=== PATIENT | female | born 1980 | race Two or more races ===

== ENCOUNTER 2016-09-24 09:11 | Emergency (ER) | payer MEDICAID ==
[2016-09-24 11:34] LABS: BASOPHILS 0.1 % (0-2); EOSINOPHILS 0.5 % (0-7); HEMATOCRIT 38.7 % (36.0-48.0); HEMOGLOBIN 13.3 g/dL (12-16); IMMATURE GRANULOCYTES 0.3 % (0-5); LYMPHOCYTES 15.6 % (15-50); MCH 29.3 pg (26.0-34.0); MCHC 34.4 g/dL (31.0-37.0); MCV 85.2 fL (80.0-100.0); MONOCYTES 7.2 % (2-11); NEUTROPHILS 76.3 % (40-80); PLATELET COUNT 217 10x3/uL (130-400); RBC 4.54 10x6/uL (4.00-5.40); RDW 12.1 % (11.5-14.5); WBC 7.5 10x3/uL (4.8-10.8)
[2016-09-24 11:41] LABS: UDS - AMPHET NEGATIVE QUAL (NEGATIVE); UDS - BARB NEGATIVE QUAL (NEGATIVE); UDS - BENZO NEGATIVE QUAL (NEGATIVE); UDS - COCAINE NEGATIVE QUAL (NEGATIVE); UDS - METH NEGATIVE QUAL (NEGATIVE); UDS - OPIATE POSITIVE QUAL (NEGATIVE); UDS - PCP NEGATIVE QUAL (NEGATIVE); UDS - THC NEGATIVE QUAL (NEGATIVE)
[2016-09-24 11:58] LABS: APPEARANCE TURBID (CLEAR); BACTERIA MANY /hpf (NONE SEEN); BILIRUBIN NEGATIVE (NEGATIVE); COLOR YELLOW (YELLOW); EPITHELIAL CELLS 0-5 /hpf (0-5); GLUCOSE 1000 mg/dL (NEGATIVE); KETONE SMALL mg/dL (NEGATIVE); LEUKOCYTE ESTERASE 2+ (NEGATIVE); MUCUS <1+ /lpf (NONE SEEN); NITRITE NEGATIVE (NEGATIVE); PROTEIN 1+ mg/dL (NEGATIVE); UROBILINOGEN NORMAL (NORMAL); WHITE CELLS - URINE >50 /hpf (0-5)
[2016-09-24 12:03] LABS: ALBUMIN 3.4 g/dL (3.4-5.0); ALKALINE PHOSPHATASE 111 U/L (46-116); ALT (SGPT) 25 U/L (10-68); CALC OSMOLALITY 279 mosm/kg (275-300); CALCIUM 8.8 mg/dL (8.5-10.1); CARBON DIOXIDE 29.3 mmol/L (21.0-32.0); CHLORIDE - SERUM 97 mmol/L (98-107); CREATININE - SERUM 0.6 mg/dL (0.6-1.3); MAGNESIUM - SERUM 1.7 mg/dL (1.8-2.4); POTASSIUM - SERUM 4.4 mmol/L (3.5-5.1); PROTEIN - SERUM 7.3 g/dL (6.4-8.2); SODIUM 134 mmol/L (136-145); UREA NITROGEN 9 mg/dL (7-18); eGFR NON AFRICAN AMERICAN > 90 mL/min (90-120)
[2016-09-24 12:04] LABS: GLUCOSE 341 mg/dL (74-106)
== END 2016-09-24 13:30 | disposition home or self-care (01) ==
LOC: D.ER 09:11
PROVIDERS: Emergency Medicine; Nurse Practitioner Family
DX: N39.0 Urinary tract infection, site not specified (principal); M54.5 Low back pain; R30.0 Dysuria; E11.9 Type 2 diabetes mellitus without complications; R10.9 Unspecified abdominal pain; R11.0 Nausea; R35.0 Frequency of micturition

== ENCOUNTER 2017-08-22 15:06 | Emergency (ER) | payer OTHER ==
[~2017-08-22] VITALS: Ht 160 cm; Wt 64.5 kg
[2017-08-22 15:26] VITALS: Ht 160 cm; Wt 64.5 kg
[2017-08-22] MEDS ORDERED: GLUCOPHAGE1000 MG PO (15:27)
[2017-08-22] MEDS ORDERED: GLIPIZIDE10 MG PO (15:28)
[2017-08-22] MEDS ORDERED: LYRICA150 MG PO (15:28)
[2017-08-22 16:31] LABS: BASOPHILS 0.1 % (0-2); HEMATOCRIT 37.6 % (36.0-48.0); IMMATURE GRANULOCYTES 0.4 % (0-5); LYMPHOCYTES 37.8 % (15-50); MCHC 34.6 g/dL (31.0-37.0); MCV 83.9 fL (80.0-100.0); MEAN PLATELET VOLUME 10.9 fL (7.4-10.4); NEUTROPHILS 54.7 % (40-80); PLATELET COUNT 252 10x3/uL (130-400); RBC 4.48 10x6/uL (4.00-5.40); RDW 12.2 % (11.5-14.5); WBC 7.4 10x3/uL (4.8-10.8)
[2017-08-22 16:54] LABS: ALBUMIN 3.3 g/dL (3.4-5.0); ALKALINE PHOSPHATASE 125 U/L (46-116); ALT (SGPT) 25 U/L (10-68); BILIRUBIN - TOTAL 0.36 mg/dL (0.2-1.3); CALC OSMOLALITY 281 mosm/kg (275-300); CALCIUM 9.1 mg/dL (8.5-10.1); CARBON DIOXIDE 29.2 mmol/L (21.0-32.0); CHLORIDE - SERUM 101 mmol/L (98-107); CREATININE - SERUM 0.6 mg/dL (0.6-1.3); POTASSIUM - SERUM 3.9 mmol/L (3.5-5.1); PROTEIN - SERUM 7.3 g/dL (6.4-8.2); SODIUM 137 mmol/L (136-145); UREA NITROGEN 10 mg/dL (7-18); eGFR NON AFRICAN AMERICAN > 90 mL/min (90-120)
[2017-08-22 16:56] LABS: GLUCOSE 253 mg/dL (74-106)
[2017-08-22 17:00] LABS: APPEARANCE CLEAR (CLEAR); BILIRUBIN NEGATIVE (NEGATIVE); COLOR YELLOW (YELLOW); GLUCOSE NEGATIVE (NEGATIVE); KETONE NEGATIVE (NEGATIVE); NITRITE NEGATIVE (NEGATIVE); PROTEIN NEGATIVE (NEGATIVE); UROBILINOGEN NORMAL (NORMAL)
[2017-08-22 21:23] LABS: HCG SERUM NEGATIVE (NEGATIVE)
[2017-08-22 23:59] VITALS: BP 117/69
== END 2017-08-22 23:59 | disposition home or self-care (01) ==
LOC: D.ER 15:06
PROVIDERS: Emergency Medicine; Family Medicine
DX: R10.31 Right lower quadrant pain (principal); E11.9 Type 2 diabetes mellitus without complications

== ENCOUNTER 2018-04-29 16:18 | Emergency (ER) | payer OTHER ==
[~2018-04-29] VITALS: Ht 160 cm; Wt 71.4 kg
[~2018-04-29 16:18] MED LIST: GLIPIZIDE10 MG PO; GLUCOPHAGE1000 MG PO; LYRICA150 MG PO
[2018-04-29 16:42] VITALS: Ht 160 cm; Wt 71.4 kg
[2018-04-29 17:23] LABS: BASOPHILS 0.1 % (0-2); HEMATOCRIT 37.7 % (36.0-48.0); HEMOGLOBIN 13.2 g/dL (12-16); IMMATURE GRANULOCYTES 0.3 % (0-5); LYMPHOCYTES 32.6 % (15-50); MCH 28.3 pg (26.0-34.0); MCV 80.7 fL (80.0-100.0); MEAN PLATELET VOLUME 10.7 fL (7.4-10.4); MONOCYTES 4.6 % (2-11); NEUTROPHILS 60.4 % (40-80); PLATELET COUNT 284 10x3/uL (130-400); RBC 4.67 10x6/uL (4.00-5.40); RDW 12.6 % (11.5-14.5); WBC 7.7 10x3/uL (4.8-10.8)
[2018-04-29 17:49] LABS: ALBUMIN 3.3 g/dL (3.4-5.0); ALKALINE PHOSPHATASE 98 U/L (46-116); ALT (SGPT) 17 U/L (10-68); AMYLASE - SERUM 54 U/L (25-115); BILIRUBIN - TOTAL 0.41 mg/dL (0.2-1.3); CALC OSMOLALITY 278 mosm/kg (275-300); CALCIUM 8.6 mg/dL (8.5-10.1); CARBON DIOXIDE 24.1 mmol/L (21.0-32.0); CHLORIDE - SERUM 100 mmol/L (98-107); CREATININE - SERUM 0.6 mg/dL (0.6-1.3); GLUCOSE 271 mg/dL (74-106); LIPASE 188 U/L (73-393); POTASSIUM - SERUM 3.9 mmol/L (3.5-5.1); PROTEIN - SERUM 7.6 g/dL (6.4-8.2); SODIUM 135 mmol/L (136-145); UREA NITROGEN 11 mg/dL (7-18); eGFR NON AFRICAN AMERICAN > 90 mL/min (90-120)
[2018-04-29 18:20] LABS: APPEARANCE CLEAR (CLEAR); COLOR YELLOW (YELLOW)
[2018-04-29 18:21] LABS: BILIRUBIN NEGATIVE (NEGATIVE); GLUCOSE 1000 mg/dL (NEGATIVE); KETONE NEGATIVE (NEGATIVE); NITRITE POSITIVE (NEGATIVE); PROTEIN NEGATIVE (NEGATIVE); UROBILINOGEN NORMAL (NORMAL)
[2018-04-29 18:22] LABS: BACTERIA MANY /hpf (NONE SEEN); EPITHELIAL CELLS 0-5 /hpf (0-5); RED CELLS - URINE OCC /hpf (0-5); YEAST <1+ /hpf (NONE SEEN)
[2018-04-29] MEDS ORDERED: PROTONIX40 MG PO (20:02)
[2018-04-29] MEDS ORDERED: ZOFRAN ODT4 MG/UDTAB PO (20:02)
[2018-04-29] MEDS ORDERED: MACROBID100 MG PO (20:02)
[2018-04-29] MEDS ORDERED: BENTYL 20 MG TA20 MG PO (20:02)
[2018-04-29 20:49] VITALS: BP 153/99
== END 2018-04-29 20:54 | disposition home or self-care (01) ==
LOC: D.ER 16:18
PROVIDERS: Family Medicine
DX: N30.90 Cystitis, unspecified without hematuria (principal)

== ENCOUNTER 2018-06-25 18:50 | Inpatient (IN) | payer OTHER ==
[~2018-06-25] VITALS: Ht 160 cm; Wt 78.6 kg
[~2018-06-25 18:50] MED LIST changes: +BENTYL 20 MG TA20 MG PO; +MACROBID100 MG PO; +PROTONIX40 MG PO; +ZOFRAN ODT4 MG/UDTAB PO
[2018-06-25 19:44] LABS: HCG SERUM NEGATIVE (NEGATIVE)
[2018-06-25 19:52] LABS: ALBUMIN 3.6 g/dL (3.4-5.0); ANION GAP 17.4 mmol/L (8-16); BILIRUBIN - TOTAL 1.09 mg/dL (0.2-1.3); CALCIUM 8.4 mg/dL (8.5-10.1); CARBON DIOXIDE 19.2 mmol/L (21.0-32.0); POTASSIUM - SERUM 3.6 mmol/L (3.5-5.1); PROTEIN - SERUM 7.8 g/dL (6.4-8.2)
[2018-06-25 19:59] LABS: APPEARANCE CLEAR (CLEAR); BILIRUBIN NEGATIVE (NEGATIVE); COLOR YELLOW (YELLOW); GLUCOSE 1000 mg/dL (NEGATIVE); KETONE NEGATIVE (NEGATIVE); NITRITE NEGATIVE (NEGATIVE); PROTEIN NEGATIVE (NEGATIVE); UROBILINOGEN NORMAL (NORMAL)
[2018-06-25 20:00] LABS: BASOPHILS 0.5 % (0-2); EOSINOPHILS 1.8 % (0-7); HEMATOCRIT 43.4 % (36.0-48.0); HEMOGLOBIN 14.8 g/dL (12-16); IMMATURE GRANULOCYTES 0.3 % (0-5); LYMPHOCYTES 20.9 % (15-50); MCH 28.2 pg (26.0-34.0); MCHC 34.1 g/dL (31.0-37.0); MCV 82.8 fL (80.0-100.0); MEAN PLATELET VOLUME 11.5 fL (7.4-10.4); MONOCYTES 6.4 % (2-11); NEUTROPHILS 70.1 % (40-80); PLATELET COUNT 252 10x3/uL (130-400); RBC 5.24 10x6/uL (4.00-5.40); RDW 13.6 % (11.5-14.5); WBC 3.9 10x3/uL (4.8-10.8)
--- NOTE | 2018-06-25 23:01 | NUR ---
PT TO RADIOLOGY.
--- NOTE | 2018-06-25 23:19 | NUR ---
PT RETURNED FROM RADIOLOGY.
[2018-06-26] VITALS (26 sets, daily range): BP systolic 85–107; BP diastolic 42–67; Ht 160 cm; Wt 78.6 kg
[2018-06-26 01:43] LABS: ANION GAP 21.4 mmol/L (8-16); CALCIUM 7.5 mg/dL (8.5-10.1); CARBON DIOXIDE 15.4 mmol/L (21.0-32.0); MAGNESIUM - SERUM 1.3 mg/dL (1.8-2.4)
[2018-06-26 01:45] LABS: POTASSIUM - SERUM 2.8 mmol/L (3.5-5.1)
[2018-06-26 01:48] LABS: CREATININE - SERUM 0.9 mg/dL (0.6-1.3)
--- NOTE | 2018-06-26 03:00 | NUR ---
REC'D PT FROM ED VIA WHEELCAHIR ACCOMP BY ED NURSE. PT WANTS TO USE BATHROOM FIRST, VOIDS AND DIARHHEA NOTED. ASSISTED TO ICU BED. TEACHER TUTOR ATTACHED. ST ON CM WITH HR TO 126. PT C/O PAIN TO ABDOMEN AND BACK, REPOSITIONED SELF FOR COMFORT. HOB UP. BED IN LOW POSITIONED AND LOKED. HISTORY AND ADMISSION ASSESSMENT COMPLETED. WILL CONT TO MONITOR.
--- NOTE | 2018-06-26 03:30 | NUR ---
CALLED DR WILSON VIA PHONE X3, NO ANSWER. LEFT VOICEMAIL. AWATING TO CALL BACK.
--- NOTE | 2018-06-26 04:11 | NUR ---
RYLEY JOSEPH APN CALLED BACK. ORDER REC'D. CONT TO MONITOR
--- NOTE | 2018-06-26 05:15 | NUR ---
DR WILSON CALLED BACK, ORDERS REC'D.
--- NOTE | 2018-06-26 07:30 | NUR ---
REPORT RECEIVED. ASSESSMENT COMPLETE. RESTING QUIETLY IN BED.
[2018-06-26 07:52] LABS: CARBON DIOXIDE 17.8 mmol/L (21.0-32.0); CHLORIDE - SERUM 109 mmol/L (98-107); CREATININE - SERUM 0.7 mg/dL (0.6-1.3); MAGNESIUM - SERUM 1.2 mg/dL (1.8-2.4); SODIUM 139 mmol/L (136-145); UREA NITROGEN 9 mg/dL (7-18); eGFR NON AFRICAN AMERICAN > 90 mL/min (90-120)
[2018-06-26 07:55] LABS: CALC OSMOLALITY 278 mosm/kg (275-300); GLUCOSE 128 mg/dL (74-106)
[2018-06-26 07:56] LABS: CALCIUM 6.7 mg/dL (8.5-10.1)
[2018-06-26 08:17] LABS: BASOPHILS 0.2 % (0-2); EOSINOPHILS 1.8 % (0-7); IMMATURE GRANULOCYTES 0.2 % (0-5); LYMPHOCYTES 26.6 % (15-50); MCV 82.2 fL (80.0-100.0); MEAN PLATELET VOLUME 11.1 fL (7.4-10.4); NEUTROPHILS 57.2 % (40-80); PLATELET COUNT 226 10x3/uL (130-400); RDW 13.7 % (11.5-14.5); WBC 4.4 10x3/uL (4.8-10.8)
[2018-06-26 08:24] LABS: ALKALINE PHOSPHATASE 73 U/L (46-116); ALT (SGPT) 25 U/L (10-68); BILIRUBIN - TOTAL 0.52 mg/dL (0.2-1.3); PROTEIN - SERUM 5.9 g/dL (6.4-8.2)
[2018-06-26 08:28] LABS: HEMATOCRIT 33.2 % (36.0-48.0); HEMOGLOBIN 11.3 g/dL (12-16); RBC 4.04 10x6/uL (4.00-5.40)
--- NOTE | 2018-06-26 08:30 | NUR ---
MOTHER AT BEDSIDE TO VISIT. PT ASSISTED UP TO TOILET. LOOSE STOOL.
[2018-06-26 08:31] LABS: ALBUMIN 2.4 g/dL (3.4-5.0)
--- NOTE | 2018-06-26 09:40 | NUR ---
DR WILSON BY TO SEE PATIENT. LET HER KNOW SHE WOULD BE IN HOSPITAL FOR A COUPLE OF DAYS. QUESTIONED HER ABOUT RECENT ILLNESS/ANTIBIOTIC USE OR TRAVEL.
--- NOTE | 2018-06-26 13:00 | NUR ---
PT HAS TOLERATED CLEAR LIQUIDS. NO NAUSEA. AT BEDSIDE. PT ASKS FOR ADDITIONAL JELLO AND BROTH.
[2018-06-26 14:05] LABS: CARBON DIOXIDE 17.8 mmol/L (21.0-32.0); CHLORIDE - SERUM 110 mmol/L (98-107); CREATININE - SERUM 0.7 mg/dL (0.6-1.3); GLUCOSE 108 mg/dL (74-106); SODIUM 140 mmol/L (136-145); eGFR NON AFRICAN AMERICAN > 90 mL/min (90-120)
[2018-06-26 14:13] LABS: CALC OSMOLALITY 277 mosm/kg (275-300); MAGNESIUM - SERUM 1.4 mg/dL (1.8-2.4); POTASSIUM - SERUM 3.5 mmol/L (3.5-5.1); UREA NITROGEN 6 mg/dL (7-18)
[2018-06-26 14:16] LABS: CALCIUM 6.9 mg/dL (8.5-10.1)
--- NOTE | 2018-06-26 16:00 | NUR ---
PT ASSISTED UP TO TOILET. LIQUID ORANGE/BROWN BM. SAMPLE SENT FOR TESTING.
--- NOTE | 2018-06-26 16:35 | NUR ---
SPOKE WITH DR WILSON REGARDING PT STOOL RESULTS. NEW ORDERS RECEIVED FOR LEVAQUIN AND LOMOTIL.
--- NOTE | 2018-06-26 17:22 | NUR ---
CLEAR LIQUID TRAY PROVIDED. TOLERATES. LOPERIMIDE GIVEN.
[2018-06-26 18:56] LABS: ALBUMIN 2.4 g/dL (3.4-5.0); ALKALINE PHOSPHATASE 65 U/L (46-116); BILIRUBIN - TOTAL 0.38 mg/dL (0.2-1.3); CALC OSMOLALITY 276 mosm/kg (275-300); CARBON DIOXIDE 17.9 mmol/L (21.0-32.0); CHLORIDE - SERUM 110 mmol/L (98-107); CREATININE - SERUM 0.7 mg/dL (0.6-1.3); GLUCOSE 121 mg/dL (74-106); PROTEIN - SERUM 5.8 g/dL (6.4-8.2); SODIUM 139 mmol/L (136-145); UREA NITROGEN 6 mg/dL (7-18); eGFR NON AFRICAN AMERICAN > 90 mL/min (90-120)
--- NOTE | 2018-06-26 19:00 | NUR ---
REPORT RECEIVED CARE ASSUMED ASSESSMENT DONE SEE FLOW SHEET. VSS. DR WILSON INFORMED OF PT STATUS BY AM RN ORDER TO CONTINUE INSULIN DRIP PER PROTOCOL THROUGH NIGHT. BEGIN DM DIET. WILL CONTINUE TO MONITOR.
[2018-06-26 19:14] LABS: MAGNESIUM - SERUM 2.4 mg/dL (1.8-2.4)
[2018-06-26 19:15] LABS: ALT (SGPT) 32 U/L (10-68); CALCIUM 6.9 mg/dL (8.5-10.1)
--- NOTE | 2018-06-26 19:25 | NUR ---
CALLED DR WILSON WITH LATEST LAB RESULTS. CALCIUM 6.9 ALBUMIN 2.4. SAYS IS FINE, NO NEW ORDERS RECEIVED REGARDING THE CALCIUM. REPLACE ELECTROLYTES PER PROTOCOL. MAY CHANGE PT DIET TO DIABETIC. PT TO REMAIN ON INSULIN DRIP OVERNIGHT.
--- NOTE | 2018-06-26 21:00 | NUR ---
MEDS GIVEN PER MAR WILL CONTINUE TO MONITOR.
--- NOTE | 2018-06-26 23:00 | NUR ---
REASSESSMENT DONE SEE FLOW SHEET. DECREASE IN BP NOTED WILL CONITNUE TO MONITOR.
[2018-06-27] VITALS (16 sets, daily range): BP systolic 99–151; BP diastolic 50–88
[2018-06-27 00:50] LABS: ALBUMIN 2.3 g/dL (3.4-5.0); ALKALINE PHOSPHATASE 66 U/L (46-116); ALT (SGPT) 36 U/L (10-68); BILIRUBIN - TOTAL 0.36 mg/dL (0.2-1.3); CARBON DIOXIDE 16.1 mmol/L (21.0-32.0); CHLORIDE - SERUM 113 mmol/L (98-107); CREATININE - SERUM 0.6 mg/dL (0.6-1.3); GLUCOSE 125 mg/dL (74-106); MAGNESIUM - SERUM 2.1 mg/dL (1.8-2.4); PROTEIN - SERUM 5.8 g/dL (6.4-8.2); SODIUM 139 mmol/L (136-145); eGFR NON AFRICAN AMERICAN > 90 mL/min (90-120)
[2018-06-27 00:52] LABS: CALC OSMOLALITY 275 mosm/kg (275-300); POTASSIUM - SERUM 3.9 mmol/L (3.5-5.1); UREA NITROGEN 4 mg/dL (7-18)
[2018-06-27 00:53] LABS: CALCIUM 6.9 mg/dL (8.5-10.1)
--- NOTE | 2018-06-27 01:00 | NUR ---
LABS REVIEWED. NO FURTHER ACTION TAKEN VSS. INCREASE IN HR NOTED WITH EXERTION.
--- NOTE | 2018-06-27 03:00 | NUR ---
REASSESSMENT DONE SEE FLOW SHEET VSS WILL CONTINUE TO MONITOR.
--- NOTE | 2018-06-27 05:00 | NUR ---
PT LAYING IN BED RESTING VSS WILL CONTINUE TO MONITOR.
[2018-06-27 06:05] LABS: BASOPHILS 0.5 % (0-2); HEMATOCRIT 31.9 % (36.0-48.0); HEMOGLOBIN 10.7 g/dL (12-16); IMMATURE GRANULOCYTES 0.2 % (0-5); LYMPHOCYTES 42.7 % (15-50); MCH 27.9 pg (26.0-34.0); MCHC 33.5 g/dL (31.0-37.0); MCV 83.3 fL (80.0-100.0); MEAN PLATELET VOLUME 10.6 fL (7.4-10.4); MONOCYTES 10.2 % (2-11); NEUTROPHILS 43.4 % (40-80); PLATELET COUNT 212 10x3/uL (130-400); RBC 3.83 10x6/uL (4.00-5.40); RDW 14.6 % (11.5-14.5)
[2018-06-27 06:19] LABS: KETONE - SERUM NEGATIVE (NEGATIVE)
[2018-06-27 06:30] LABS: ALBUMIN 2.2 g/dL (3.4-5.0); ALKALINE PHOSPHATASE 61 U/L (46-116); ALT (SGPT) 41 U/L (10-68); BILIRUBIN - TOTAL 0.34 mg/dL (0.2-1.3); CALC OSMOLALITY 276 mosm/kg (275-300); CARBON DIOXIDE 15.9 mmol/L (21.0-32.0); CHLORIDE - SERUM 115 mmol/L (98-107); CREATININE - SERUM 0.5 mg/dL (0.6-1.3); GLUCOSE 120 mg/dL (74-106); MAGNESIUM - SERUM 2.1 mg/dL (1.8-2.4); POTASSIUM - SERUM 3.8 mmol/L (3.5-5.1); PROTEIN - SERUM 5.3 g/dL (6.4-8.2); SODIUM 140 mmol/L (136-145); UREA NITROGEN 4 mg/dL (7-18); eGFR NON AFRICAN AMERICAN > 90 mL/min (90-120)
[2018-06-27 06:32] LABS: CALCIUM 6.9 mg/dL (8.5-10.1)
--- NOTE | 2018-06-27 07:00 | NUR ---
PATIENT SLEEPING RESP DEEP AND REGULAR EYES CLOSED. ALLOWING PATIENT TO REST
--- NOTE | 2018-06-27 07:47 | NUR ---
PATIENT AWAKE WANTING TO TAKE A BATH STATES SHE FEELS DIRTY. ASSISTED TO BATHROOM WITH SUPPLIES TO BATH
--- NOTE | 2018-06-27 08:35 | NUR ---
BREAKFAST SERVED. ACCUCHECK 139. IV LEFT HAND RED AND VERY TENDER TO TOUCH. IV DC'D. INSULIN OFF AT THIS TIME. BATH TAKEN. STILL DOES NOT FEEL WELL. TALKING ON PHONE WITH FAMILY
--- NOTE | 2018-06-27 09:00 | NUR ---
ate fair breakfast. menu filled out. no distress. denies pain
--- NOTE | 2018-06-27 09:56 | NUR ---
FAMILY HERE REQUESTING PATEINT GET HOME HEALTH.CASE MANAGEMENT NOTIFIED.
--- NOTE | 2018-06-27 10:37 | NUR ---
sleeping. resp deep and regular. awakes easily for blood sugar checks. turning self from side to side. no distress.
[2018-06-27] MEDS ORDERED: METFORMIN HCL500 M1 PO (12:20)
[2018-06-27] MEDS ORDERED: GLUCOTROL 5 MG T5 MG PO (12:21)
--- NOTE | 2018-06-27 12:29 | NUR ---
DR. WILSON HERE INSULIN GTT DC'D. Q 4 HOUR ACCUCHECK. PATEINT STATES SHE HAS A INSULIN PEN OF NOVOLOG INSULIN. FAMILY TO BRING TO CONFIRM WHAT TYPE OF INSULIN. MEDS COME FROM [facility]. CALLED [facility] NO PRESCRIPTIONS FILLED SINCE APRIL FOR MACROBID AND ZOFRAN. FAMILY HERE UPDATE GIVEN
[2018-06-27] MEDS ORDERED: LANTUS SOL100 UNIT/1 SQ (12:50)
--- NOTE | 2018-06-27 13:18 | NUR ---
PATIENT'S FAMILY TOOK A PICTURE OF INSULIN AND SET TO PATIENT. PATEINT TAKES LANTUS INSULIN SHE STATE. POOR APPEITTE AT LUNCH. STATES SHE ATE WHAT SHE WANTED TOO. FAMILY AT BEDSIDE
--- NOTE | 2018-06-27 15:00 | NUR ---
RESTING WELL NO DISTRESS
--- NOTE | 2018-06-27 17:04 | NUR ---
REPORT CALLED TO AMY. GONZALEZ TO TRANSFER TO 1207 PER WHEEL CHAIR. DINNER TRAY SERVED
--- NOTE | 2018-06-27 18:00 | NUR ---
TRANSFERED TO ROOM 1207. ATE WELL AT SUPPER. NO DISTRESS. IV PATENT
--- NOTE | 2018-06-27 18:17 | NUR ---
RECIEVED PT FROM CVICU. PT AWAKE AND ORIETNED. NO COMPLAINTS/CONCERNS VOICED AT THIS TIME. CL IN REACH, SRX2.
--- NOTE | 2018-06-27 19:08 | NUR ---
GREETED PATIENT AND INTRODUCED MYSELF. PATIENT IS LAYING IN BED IN SUPINE POSITION. HOB AT 30 DEGREES. RESPIRATIONS EVEN. NO S/S OF DISTRESS. FAMILY MEMBERS AT BEDSIDE. DENIES ANY NEEDS AT THIS TIME. CALL LIGHT IN REACH.
[2018-06-28] VITALS: BP 100/53
--- NOTE | 2018-06-28 01:42 | NUR ---
PATIENT AWAKE LAYING IN BED WATCHING MOVIE ON PERSONAL DEVICE. DENIES ANY NEEDS AT THIS TIME. CALL LIGHT IN REACH.
--- NOTE | 2018-06-28 03:38 | NUR ---
PATIENT RESTING QUIETLY WITH EYES CLOSED. RESPIRATIONS EVEN. NO S/S OF DISTRESS. CALL LIGHT IN REACH.
--- NOTE | 2018-06-28 07:50 | NUR ---
PT AAOX4 RESP EVEN AND NONLABORED, NO SIGNS OF DISTRESS NOTED, NO NEEDS EXPRESSED AT THIS TIME WILL CONTINUE TO MONITOR CL IN REACH
--- NOTE | 2018-06-28 09:49 | MORECARE ---
CASE MANAGEMENT DISCHARGE SUMMARY PATIENT: ARGENIS SELF UNIT: [id number] ADM DATE: 06/26/18 AGE: 38 : 82 SEX: F ROOM/BED: D.1207 AUTHOR: KASIA MEDEIROS PHYSICIAN: REFERRING PHYSICIAN: RICH WILSON MD DATE OF SERVICE: 06/28/18 Discharge Plan Patient Name: ARGENIS SELF Facility: [facility]:[place] : 1980 Planned Disposition: Home Anticipated Discharge Date: Discharge Date: Expected LOS: Initial Reviewer: [email or web address] Initial Review Date: 06/26/2018 Generated: 06/28/18 10:49 am Patient Name: ARGENIS SELF Page [id number] at 0949 All edits/amendments must be made on the electronic document DICTATION DATE: 06/28/18947 CELL TOWER CLIMBER: MATI 06/28/18947 RPT#: [id number] DC DATE: STATUS: ADM IN [facility] [address] [place] [address] END OF REPORT
--- NOTE | 2018-06-28 10:08 | MORECARE ---
CASE MANAGEMENT DISCHARGE SUMMARY PATIENT: ARGENIS SELF UNIT: [id number] ADM DATE: 06/26/18 AGE: 38 : 82 SEX: F ROOM/BED: D.1207 AUTHOR: MALA,DOC PHYSICIAN: REFERRING PHYSICIAN: RICH WILSON MD DATE OF SERVICE: 06/28/18 Discharge Plan Patient Name: ARGENIS SELF Facility: [facility]:[place] : 1980 Planned Disposition: Home Anticipated Discharge Date: Discharge Date: Expected LOS: Initial Reviewer: [email or web address] Initial Review Date: 06/26/2018 Generated: 06/28/18 11:07 am Comments DCP- Discharge Planning Updated by [email or web address]: Mary Kohli on 06/28/18 9:[address] Patient Name: ARGENIS SELF Admission Status: ER Accout number: [id number] Admission Date: 06-26-2018 : 1980 Admission Diagnosis: Attending: RICH WILSON Current LOS: 2 Anticipated DC Date: Planned Disposition: Home Primary Insurance: [employer] Discharge Planning Comments: CM met with patient about discharge planning. CM explained CM role and verbal consent was given to do dc assessment. CM educated on Home Health, DME and rehab services that are available. Patient states her discharge plan is to return to home with .. States home environment is safe discharge. Denies any discharge planning needs at this time.. States will drive her home upon discharge. CM will continue to follow and assist as needed with discharge planning needs. Inspector Advanced Composite: Mary Kohli DCPIA - Discharge Planning Initial Assessment Updated by [email or web address]: Mary Kohli on 06/28/18 10:06 am * Is the patient Alert and Oriented? Yes * How many steps to enter\exit or inside your home? na * PCP Paty/CRISTOBAL VÁZQUEZ * Pharmacy [facility] * Preadmission Environment Home with Family * ADLs Independent * List name and contact numbers for known caregivers / representatives who currently or will assist patient after discharge: ТАТЬЯНА [phone] * Verbal permission to speak to the caregivers and representatives has been obtained from the patient. N/A * Community resources currently utilized None * Additional services required to return to the preadmission environment? No * Can the patient safely return to the preadmission environment? Yes * Has this patient been hospitalized within the prior 30 days at any hospital? No Last DP export: 06/28/18 8:49 a Patient Name: ARGENIS SELF Page 68829 at 1008 All edits/amendments must be made on the electronic document DICTATION DATE: 06/28/18 1007 WAREHOUSE RECEIVING SUPERVISOR: MATI 06/28/18 [facility] RPT#: [id number] DC DATE: STATUS: ADM IN [facility] [address] [place] [address] END OF REPORT
--- NOTE | 2018-06-28 11:42 | NUR ---
PATIENT UPSET. PATIENT STATES THAT NOTHING IS BEING DONE FOR HER HERE THAT SHE CAN'T DO AT HOME. PATIENT UPSET AND ASKING FOR PHYSICIAN TO COME AND SEE HER. MALE VISITOR AT BEDSIDE REQUESTING PHYSICIAN AT BEDSIDE. CALLED AND SPOKE TO VARSHA. SHE STATES SHE SAW PATIENT THIS MORNING AND PATIENT WAS COMPLAINING OF NAUSEA. PATIENT DENIED ANY NAUSEA OR VOMITING TO THIS AIRPLANE GASTANK LINER ASSEMBLER AT ALL TODAY. VARSHA STATES THAT IS ROUNDING AND WILL BE THERE WHEN HE IS ABLE. THANKED VARSHA.
[2018-06-28] MEDS ORDERED: FLAGYL500 MG PO (12:06)
[2018-06-28] MEDS ORDERED: LEVAQUIN750 MG PO (12:06)
[2018-06-28] MEDS ORDERED: PROTONIX40 MG PO (12:07)
[2018-06-28] MEDS ORDERED: LANTUS INSULIN10 ML SC (12:07)
--- NOTE | 2018-06-28 14:30 | NUR ---
IV DC WITH CATH INTACT, DC INSTUCTIONS GIVEN PT VERABLIZES UNDERSTANDING, LEAVING VIA WHEELCHAIR VIA PRIVATE VECHILE IN STABLE CONDITON
--- NOTE | 2018-06-28 15:52 | MORECARE ---
CASE MANAGEMENT DISCHARGE SUMMARY PATIENT: ARGENIS SELF UNIT: [id number] ADM DATE: 06/26/18 AGE: 38 : 82 SEX: F ROOM/BED: D.1207 AUTHOR: MALA,DOC PHYSICIAN: REFERRING PHYSICIAN: RICH WILSON MD DATE OF SERVICE: 06/28/18 Discharge Plan Patient Name: ARGENSI SELF Facility: [facility]:[place] : 1980 Planned Disposition: Home Anticipated Discharge Date: Discharge Date: 06/28/2018 Expected LOS: Initial Reviewer: [email or web address] Initial Review Date: 06/26/2018 Generated: 06/28/18 4:52 pm Comments DCP- Discharge Planning Updated by [email or web address]: Mary Kohli on 06/28/18 9:[address] Patient Name: ARGENIS SELF Admission Status: ER Accout number: [id number] Admission Date: 06-26-2018 : 1980 Admission Diagnosis: Attending: RICH WILSON Current LOS: 2 Anticipated DC Date: Planned Disposition: Home Primary Insurance: [employer] Discharge Planning Comments: CM met with patient about discharge planning. CM explained CM role and verbal consent was given to do dc assessment. CM educated on Home Health, DME and rehab services that are available. Patient states her discharge plan is to return to home with .. States home environment is safe discharge. Denies any discharge planning needs at this time.. States will drive her home upon discharge. CM will continue to follow and assist as needed with discharge planning needs. Inspector Quality Assurance: Mary Kohli DCPIA - Discharge Planning Initial Assessment Updated by [email or web address]: Mary Kohli on 06/28/18 10:06 am * Is the patient Alert and Oriented? Yes * How many steps to enter\exit or inside your home? na * PCP Paty/CRISTOBAL VÁZQUEZ * Pharmacy [facility] * Preadmission Environment Home with Family * ADLs Independent * List name and contact numbers for known caregivers / representatives who currently or will assist patient after discharge: ТАТЬЯНА [phone] * Verbal permission to speak to the caregivers and representatives has been obtained from the patient. N/A * Community resources currently utilized None * Additional services required to return to the preadmission environment? No * Can the patient safely return to the preadmission environment? Yes * Has this patient been hospitalized within the prior 30 days at any hospital? No Last DP export: 06/28/18 9:08 a Patient Name: ARGENIS SELF Page 71539 at 1552 All edits/amendments must be made on the electronic document DICTATION DATE: 06/28/181550 PORT DRIER: MATI 06/28/181550 RPT#: [id number] DC DATE:06/28/18 STATUS: DIS IN [facility] [address] [place] [address] END OF REPORT
[2018-06-29 17:08] LABS: OVA + PARASITE EXAM Final report (())
[2018-06-30 19:07] LABS: HEPATITIS C ANTIBODY <0.1 S/CO RAT (0.0-0.9)
== END 2018-06-28 15:24 | disposition home or self-care (01) | DRG 637 ==
LOC: D.ER 18:50 → D.EDHOLD 06-26 00:53 → D.CVICU 06-26 02:25 → D.M3 06-27 18:15
PROVIDERS: Emergency Medicine; Family Medicine; ADMIT Internal Medicine Nephrology; ATTEND Internal Medicine Nephrology
DX: E10.10 Type 1 diabetes mellitus with ketoacidosis without coma (principal); R57.1 Hypovolemic shock; A09 Infectious gastroenteritis and colitis, unspecified; Z79.4 Long term (current) use of insulin; E10.40 Type 1 diabetes mellitus with diabetic neuropathy, unspecified; D50.9 Iron deficiency anemia, unspecified; E87.6 Hypokalemia; E83.42 Hypomagnesemia

== ENCOUNTER 2019-06-01 13:45 | Emergency (ER) | payer OTHER ==
[~2019-06-01] VITALS: Ht 160 cm; Wt 440.5 kg
[~2019-06-01 13:45] MED LIST changes: +FLAGYL500 MG PO; +GLUCOTROL 5 MG T5 MG PO; +LANTUS INSULIN10 ML SC; +LANTUS SOL100 UNIT/1 SQ; +LEVAQUIN750 MG PO; +METFORMIN HCL500 M1 PO
[2019-06-01 14:14] VITALS: Ht 160 cm; Wt 440.5 kg
[2019-06-01 14:46] LABS: BASOPHILS 0.3 % (0-2); EOSINOPHILS 7.5 % (0-7); HEMATOCRIT 41.6 % (36.0-48.0); IMMATURE GRANULOCYTES 0.3 % (0-5); LYMPHOCYTES 31.6 % (15-50); MCHC 33.7 g/dL (31.0-37.0); MCV 86.1 fL (80.0-100.0); MEAN PLATELET VOLUME 11.1 fL (7.4-10.4); MONOCYTES 3.8 % (2-11); NEUTROPHILS 56.5 % (40-80); RBC 4.83 10x6/uL (4.00-5.40); RDW 12.3 % (11.5-14.5); WBC 6.3 10x3/uL (4.8-10.8)
[2019-06-01 14:48] LABS: PLATELET COUNT 274 10x3/uL (130-400)
[2019-06-01 14:52] LABS: CALC OSMOLALITY 269 mosm/kg (275-300); CALCIUM 8.4 mg/dL (8.5-10.1); CARBON DIOXIDE 25.8 mmol/L (21.0-32.0); CHLORIDE - SERUM 96 mmol/L (98-107); CREATININE - SERUM 0.8 mg/dL (0.6-1.3); POTASSIUM - SERUM 4.2 mmol/L (3.5-5.1); SODIUM 129 mmol/L (136-145); UREA NITROGEN 11 mg/dL (7-18); eGFR NON AFRICAN AMERICAN 85 mL/min (90-120)
[2019-06-01 14:53] LABS: GLUCOSE 321 mg/dL (74-106)
[2019-06-01 14:58] LABS: ALBUMIN 3.5 g/dL (3.4-5.0); ALKALINE PHOSPHATASE 100 U/L (30-120); ALT (SGPT) 21 U/L (10-68); BILIRUBIN - TOTAL 0.93 mg/dL (0.2-1.3); PROTEIN - SERUM 7.8 g/dL (6.4-8.2)
[2019-06-01 16:43] LABS: GLUCOSE 1000 mg/dL (NEGATIVE); KETONE SMALL mg/dL (NEGATIVE); NITRITE NEGATIVE (NEGATIVE); SPECIFIC GRAVITY 1.015 (1.005-1.020)
[2019-06-01 16:44] LABS: BILIRUBIN NEGATIVE (NEGATIVE); UROBILINOGEN NORMAL (NORMAL)
[2019-06-01 17:24] VITALS: BP 135/86
== END 2019-06-01 17:29 | disposition home or self-care (01) ==
LOC: D.ER 13:45
PROVIDERS: Family Medicine
DX: E87.1 Hypo-osmolality and hyponatremia (principal); R03.1 Nonspecific low blood-pressure reading; E11.9 Type 2 diabetes mellitus without complications; Z79.84 Long term (current) use of oral hypoglycemic drugs

== ENCOUNTER 2020-06-12 06:25 | Emergency (ER) | payer OTHER ==
[~2020-06-12] VITALS: Ht 160 cm; Wt 77.3 kg
[2020-06-12 06:30] VITALS: Ht 160 cm; Wt 77.3 kg
[2020-06-12] MEDS ORDERED: OZEMPIC1 MG/0.75 SC (06:32)
[2020-06-12 06:58] LABS: BASOPHILS 0.2 % (0-2); EOSINOPHILS 3.3 % (0-7); HEMATOCRIT 39.5 % (36.0-48.0); HEMOGLOBIN 13.5 g/dL (12-16); IMMATURE GRANULOCYTES 0.1 % (0-5); LYMPHOCYTES 39.5 % (15-50); MCH 28.1 pg (26.0-34.0); MCHC 34.2 g/dL (31.0-37.0); MCV 82.1 fL (80.0-100.0); MONOCYTES 5.6 % (2-11); NEUTROPHIL ABS# 4.55 10x3/uL (1.56-6.13); NEUTROPHILS 51.3 % (40-80); PLATELET COUNT 267 10x3/uL (130-400); RBC 4.81 10x6/uL (4.00-5.40); RDW 12.3 % (11.5-14.5); WBC 8.9 10x3/uL (4.8-10.8)
[2020-06-12 07:05] LABS: BILIRUBIN NEGATIVE (NEGATIVE); KETONE NEGATIVE (NEGATIVE); NITRITE NEGATIVE (NEGATIVE); UROBILINOGEN NORMAL mg/dL (< 2)
[2020-06-12 07:07] LABS: CALC OSMOLALITY 272 mosm/kg (275-300); CALCIUM 8.9 mg/dL (8.5-10.1); CARBON DIOXIDE 24.6 mmol/L (21.0-32.0); CHLORIDE - SERUM 97 mmol/L (98-107); CREATININE - SERUM 0.8 mg/dL (0.6-1.3); GLUCOSE 305 mg/dL (74-106); POTASSIUM - SERUM 3.7 mmol/L (3.5-5.1); SODIUM 131 mmol/L (136-145); UREA NITROGEN 11 mg/dL (7-18); eGFR NON AFRICAN AMERICAN 85 mL/min (90-120)
[2020-06-12 07:13] LABS: ALBUMIN 3.4 g/dL (3.4-5.0); ALKALINE PHOSPHATASE 134 U/L (30-120); ALT (SGPT) 26 U/L (10-68); BILIRUBIN - TOTAL 0.42 mg/dL (0.2-1.3); LIPASE 137 U/L (73-393); PROTEIN - SERUM 7.9 g/dL (6.4-8.2)
[2020-06-12 09:24] VITALS: BP 163/107
== END 2020-06-12 08:27 | disposition home or self-care (01) ==
LOC: D.ER 06:25
PROVIDERS: Family Medicine
DX: R10.30 Lower abdominal pain, unspecified (principal); E11.9 Type 2 diabetes mellitus without complications; Z79.84 Long term (current) use of oral hypoglycemic drugs